=== PATIENT | male | born 1995 | race African-American/Black ===

== ENCOUNTER 2017-12-19 21:08 | Emergency (ER) | payer SELFPAY ==
[~2017-12-19] VITALS: Ht 177.8 cm; Wt 71.4 kg
[2017-12-19 21:23] VITALS: TEMP 98.7
[2017-12-19] MEDS ORDERED: NORCO 325 MG-51 TAB PO (22:40)
[2017-12-19 23:42] VITALS: BP 141/80; PULSE 65
== END 2017-12-19 23:42 | disposition home or self-care (01) ==
LOC: COL.ER 21:08
DX: S92.352A Displaced fracture of fifth metatarsal bone, left foot, initial encounter for closed fracture (principal); S93.402A Sprain of unspecified ligament of left ankle, initial encounter; Z88.0 Allergy status to penicillin; X50.1XXA Overexertion from prolonged static or awkward postures, initial encounter; Y93.67 Activity, basketball; Y92.009 Unspecified place in unspecified non-institutional (private) residence as the place of occurrence of the external cause
CPT/HCPCS: Q4045

== ENCOUNTER 2018-02-01 09:40 | Emergency (ER) | payer OTHER ==
[~2018-02-01] VITALS: Ht 177.8 cm; Wt 64.0 kg
[~2018-02-01 09:40] MED LIST: NORCO 325 MG-51 TAB PO
[2018-02-01 09:47] VITALS: TEMP 97.5
[2018-02-01 11:25] VITALS: BP 133/68; PULSE 62
== END 2018-02-01 11:25 | disposition home or self-care (01) ==
LOC: COL.ER 09:40
DX: B27.90 Infectious mononucleosis, unspecified without complication (principal); R59.0 Localized enlarged lymph nodes
CPT/HCPCS: J8540